=== PATIENT | male | born 1955 | race Asian ===

== ENCOUNTER → 2018-11-08 18:04 | Outpatient (CLI) | payer OTHER, SELFPAY ==
--- NOTE | 2018-11-08 18:07 | DI.MRI.S_ITS ---
PROCEDURE: MR LUMBAR SPINE WO CON INDICATIONS: STRAIN OF MUSCLE,FASCIA AND TENDON OF LOWER BACK TECHNIQUE: Noncontrast sagittal T1 spin echo and T2 fast echo, sagittal STIR, axial T1 and T2 fast spin echo through the lumbar spine. In cases with scoliosis, additional coronal T2 fast spin echo may be performed. COMPARISON: [facility] Outside Film, MR, MR LUMBAR SPINE WITHOUT CONTRAST, 07/23/2016, 12:55. FINDINGS: Image quality: Excellent. Alignment and Curvature: There is normal bony alignment. Bone Marrow: Marrow is of normal overall signal. No acute vertebral body compression fractures. Spinal Cord: Conus medullaris terminates at the T12-L1 level. Visualized cord demonstrates normal signal and size. Paraspinous Soft Tissues: No paravertebral masses. T12-L1: No canal stenosis or foraminal stenosis. Unremarkable facet joints. L1-L2: Unchanged. Mild disc bulge. No canal stenosis or foraminal stenosis. Bilateral facet hypertrophy. L2-L3: No canal stenosis or foraminal stenosis. Mild facet hypertrophy. L3-L4: Unchanged. Disc bulge and facet and ligament hypertrophy result in moderate to severe canal stenosis. There is left foraminal disc bulge resulting in mild left foraminal stenosis and compression on the left L3 nerve root in the foramen. Facet hypertrophy is moderate to severe. L4-L5: There is moderate diffuse disc bulge and facet and ligament hypertrophy resulting in mild canal stenosis. The left L4 nerve root is effaced far laterally in the left foramen. L5: On the current study, there is a free disc fragment in the right lateral recess impinging on the right L5 nerve root above the foramen and deviating the right S1 nerve root posteriorly. On the previous study, a free disc fragment is present in the left lateral recess. It is uncertain where the disc fragment originates. L5-S1: Central posterior disc protrusion posteriorly deviates right S1 in the lateral recess. It abuts left S1 nerve root in the left lateral recess. Bilateral facet and ligament hypertrophy. Mild bilateral foraminal narrowing. IMPRESSION: 1. At L3-L4, there is multifactorial moderate to severe central canal stenosis. A left foraminal disc bulge compresses on the left L3 nerve root in the foramen. 2. At L4-L5, there is mild canal stenosis. The left L4 nerve root is effaced far laterally in the foramen. 3. There is a free disc fragment in the right lateral recess behind L5. Its origin is uncertain. It impinges on the right L5 nerve root above the L5 foramen and deviates the right S1 nerve root posteriorly. On the previous study, a free disc fragment is present in the left lateral recess. 4. L5-S1, a central posterior disc protrusion posteriorly deviates the right S1 nerve root in the right lateral recess and abuts the left S1 nerve root in the left lateral recess. Dictated by: Reza Philip M.D. on 11/09/2018 at 13:38 Approved by: Reza Philip M.D. on 11/09/2018 at 13:49
== END ==
PROVIDERS: Family Provider Family Medicine; PCP Family Medicine; Visit Provider Orthopaedic Surgery
DX: S39.012D Strain of muscle, fascia and tendon of lower back, subsequent encounter (principal); M48.061 Spinal stenosis, lumbar region without neurogenic claudication; M48.07 Spinal stenosis, lumbosacral region; M51.27 Other intervertebral disc displacement, lumbosacral region
CPT/HCPCS: 72148

== ENCOUNTER 2024-06-20 08:30 | Outpatient (RCR) | payer OTHER, MEDICARE, SELFPAY | END 2024-06-20 10:30 | LOC: CAR 08:30 | PROVIDERS: Family Provider Family Medicine; PCP Family Medicine; Referring Provider Thoracic Surgery (Cardiothoracic Vascular Surgery); Visit Provider Thoracic Surgery (Cardiothoracic Vascular Surgery) | DX: Z95.1 Presence of aortocoronary bypass graft (principal) | CPT/HCPCS: 93798 ==